=== PATIENT | female | born 2000 | race Two or more races ===

== ENCOUNTER 2018-03-25 13:47 | Emergency (ER) | payer MEDICAID ==
[~2018-03-25] VITALS: Ht 165.1 cm; Wt 74.8 kg
[2018-03-25 14:20] VITALS: BP 129/78
== END 2018-03-25 14:52 | disposition home or self-care (01) ==
LOC: ER 13:47
DX: H00.014 Hordeolum externum left upper eyelid (principal); I10 Essential (primary) hypertension; F17.210 Nicotine dependence, cigarettes, uncomplicated